=== PATIENT | male | born 1935 | race Caucasian/White ===

== ENCOUNTER 2019-11-25 14:05 | Emergency (ER) | payer MEDICARE, SELFPAY ==
--- NOTE | ~2019-11-25 | CT_ITS ---
EXAMINATION: CT brain wo con DATE: 11/25/2019 14:52 INDICATION: TIA. Dizziness. Weakness. TECHNIQUE: Computed tomography (CT) of the head was performed without intravenous contrast. The dose- length product was 605.33 mGy-cm. The mA was adjusted according to patient size. Iterative reconstruc tion technique was employed. COMPARISON: None FINDINGS: Generalized atrophy. There are scattered mild periventricular and subcortical white matter changes, most likely related to small vessel ischemic disease (microangiopathy). Basilar cisterns are patent. There is intracranial atherosclerosis. No acute intracranial hemorrhage, infarction, mass or mass effect. Paranasal sinuses and mastoids are pneumatized. No depressed skull fractures. IMPRESSION: 1. No acute intracranial abnormality. 2: Chronic age-related findings. Reviewed, dictated and finalized at location A.
--- NOTE | ~2019-11-25 | CT_ITS ---
EXAMINATION: CT chest w con DATE: 11/25/2019 16:27 INDICATION: Possible right chest mass on chest x-ray. TECHNIQUE: Computed tomography (CT) of the chest was performed with 75 cc Omnipaque 350 intravenous c ontrast. The dose-length product was 252.11 mGy-cm. Automated exposure control and iterative reconstr uction technique were employed. COMPARISON: CT dated 11/25/2019 FINDINGS: Enlarged pulmonary arteries consistent with pulmonary arterial hypertension. Ectatic enlarg ed right pulmonary artery accounts for masslike density seen on chest x-ray. No thoracic lymphadenopa thy. No evidence for aortic dissection. Mild atherosclerosis. Small hiatal hernia. There is fusiform aneurysm of the ascending thoracic aorta measuring 4.1 cm. No significant pleural or pericardial effu anali. The upper abdomen is unremarkable. There is a 9 mm right middle lobe nodule, image 85. Severe bullous emphysema, left greater than right . There is right thoracic volume loss. There is right upper lobe scarring/atelectasis which has a karla ear configuration along the major fissure. IMPRESSION: 1. Right middle lobe nodule measuring 9 mm. Cannot exclude malignancy. Recommend follow-up 3 month in terval low dose CT chest or pet/CT. 2: Severe bullous emphysema with right upper lobe scarring/atelectasis. 3: Enlarged pulmonary arteries, consistent with pulmonary arterial hypertension. 4: Fusiform ascending thoracic aortic aneurysm. Reviewed, dictated and finalized at location A. IMPRESSION: 1. Right middle lobe nodule measuring 9 mm. Cannot exclude malignancy. Recommen d follow-up 3 month interval low dose CT chest or pet/CT. 2: Severe bullous emphysema with right upper lobe scarring/atelectasis. 3: Enlarged pulmonary arteries, consistent with pulmonary arterial hypertension . 4: Fusiform ascending thoracic aortic aneurysm.
--- NOTE | ~2019-11-25 | XR_ITS ---
XR chest 2V 11/25/2019 14:43 Indication: Dizziness, shortness of breath. History of COPD. Procedure: AP and lateral views of the chest Comparison: No prior studies for comparison. Findings: There is bullous emphysema, left greater than right. There is bibasilar airspace disease. T here is right apical pleural thickening/scarring. There is prominence of the pulmonary arteries sugge sting pulmonary arterial hypertension. There is a possible mass lateral to the right hilum. Impression: 1: Bibasilar airspace disease may represent pneumonia, edema and/or atelectasis. 2: Possible right perihilar mass partially obscured by adjacent airspace disease. Consider correlatio n with contrast-enhanced CT chest. 3: Bullous emphysema. Reviewed, dictated and finalized at location A. Impression: 1: Bibasilar airspace disease may represent pneumonia, edema and/or atelectasis . 2: Possible right perihilar mass partially obscured by adjacent airspace diseas e. Consider correlation with contrast-enhanced CT chest. 3: Bullous emphysema.
[2019-11-25 14:03] VITALS: BP 127/71; PULSE 85; RESP 20; TEMP 36.9; O2SAT 97
--- NOTE | 2019-11-25 14:15 | ECG_ITS ---
Measurements Intervals [place] Rate: 81 P: 74 [place]: 163 QRS: 66 QRSD: 99 T: 54 QT: 371 QTc: 432 Interpretive Statements SINUS RHYTHM INCOMPLETE RIGHT BUNDLE BRANCH BLOCK INFERIOR INFARCT, AGE INDETERMINATE BASELINE ARTIFACT- I, II, III, V2-V3 ABNORMAL ECG Electronically Signed On 11-25-2019 15:46:05 CDT by Lazaro Wiley D.O.
--- NOTE | 2019-11-25 14:26 | ED.WEAKNESS ---
HPI - Weakness General Chief complaint: Weakness Stated complaint: weakness Time Seen by Provider: 11/25/19 14:14 Source: patient Mode of arrival: EMS Limitations: no limitations History of Present Illness HPI Narrative: 84 years old white male lives alone presents with sudden onset of weakness was not able to get out of chair without feeling like is going to fall over lasted for 15 minutes and then resolved. Patient called 911. History of obstructive sleep apnea on CPAP, COPD on 3 L of oxygen as needed, coronary artery disease, IBS, insomnia, chronic lower back pain. Patient does not take blood thinner. Currently patient feeling great denying any symptoms. Patient denies any fever, chills, nausea, vomiting, respiratory symptoms or urinary symptoms. Related Data Home Medications Medication Instructions Recorded Confirmed albuterol sulfate 2.5 mg INHALATION Q6H 06/27/19 09/10/19 budesonide-formoterol HFA 160 2 puff INHALATION Q12H 06/27/19 09/10/19 mcg-4.5 mcg/actuation aerosol inhaler cefuroxime axetil 500 mg tablet 500 mg PO Q12H 06/27/19 09/10/19 gabapentin 300 mg capsule 300 mg PO TID 06/27/19 09/10/19 hydrocodone 10 mg-acetaminophen 1 tablet PO Q6H PRN 06/27/19 09/10/19 325 mg tablet ipratropium 0.5 mg-albuterol 3 mg 3 ml INHALATION QID PRN 06/27/19 09/10/19 (2.5 mg base)/3 mL nebulization soln linaclotide 290 mcg capsule 290 mcg PO QAM 06/27/19 09/10/19 magnesium 250 mg tablet See Rx Instructions PO DAILY 06/27/19 09/10/19 tiotropium bromide 18 mcg capsule 1 cap INHALATION DAILY 06/27/19 09/10/19 with inhalation device Allergies Allergy/AdvReac Type Severity Reaction Status Date / Time No Known Allergies Allergy Verified 11/25/19 14:10 Review of Systems Review of Systems: Narrative: CONSTITUTIONAL: Denies fever, chills, or sweats. EYES: Denies visual changes, redness, or discharge. ENT: Denies rhinorrhea, congestion, sore throat, or otalgia. CARDIOVASCULAR: Denies chest pain, palpitations, or edema. RESPIRATORY: Denies cough or dyspnea. GASTROINTESTINAL: Denies abdominal pain, nausea, vomiting, or diarrhea. GENITOURINARY: Denies dysuria or hematuria. SKIN: Denies rash or itching. MUSCULOSKELETAL: Denies back pain, joint pain, or myalgia. NEUROLOGIC: Denies headache, numbness, or weakness. PSYCHIATRIC: Denies anxiety or depression. [facility] Past Medical History Medical History Chronic low back pain with left-sided sciatica ANTONIO on CPAP Social History Social History Smoking status: Never smoker Alcohol intake: never Exam Narrative: Exam Narrative: General appearance: Well-developed, well-nourished Skin: Normal color Head: Normocephalic, nontraumatic Eyes: Clear conjunctiva ENT: Oropharynx normal, ears normal, nose normal Neck: Supple, nontender Chest and respiratory: Airway patent, no respiratory distress, no accessory muscle use Heart: Regular rate/rhythm Abdomen: Soft, nontender, no organomegaly, quiet bowel sounds Vascular: Normal peripheral pulses, normal capillary refill. Musculoskeletal: Normal range of motion, nontender back Neurologic: Alert and oriented ?3, [employer]IST[employer] is normal as tested, no gross motor deficit Course Course Emergency Course: Currently asymptomatic Vital Signs Vital signs: Vital Signs Temperature 36.9 C 11/25/19 14:03 Pulse Rate 85 11/25/19 14:03 Respiratory Rate 20 11/25/19 14:03 Blood Pressure 127/71 11/25/19 14:03 Pulse Oximetry 97 11/25/19 14:03 Temperature 36.9 C 11/25/19 14:03 Pulse Rate 90 11/25/19 15:32 Respiratory Rate 20 11/25/19 14:03 B
[2019-11-25 14:37] LABS: Basophils Absolute Auto 0.1 K/mm3 (0.0-0.1); Basophils Percent Auto 0.9 % (0.2-1.2); Eosinophils Absolute Auto 0.1 K/mm3 (0-0.3); Eosinophils Percent Auto 1.1 % (0-4.4); Hematocrit 45.6 % (42.0-52.0); Hemoglobin 14.4 g/dL (14.0-18.0); Immature Granulocyte Absolute 0.08 K/mm3 (0.00-0.031); Lymphocytes Absolute Auto 1.22 K/mm3 (0.9-3.2); Lymphocytes Percent Auto 15.3 % (18.3-44.2); Mean Corpuscular HGB Conc 31.6 g/dl (32-36); Mean Corpuscular Hemoglobin 28.2 pg (26-34); Mean Corpuscular Volume 89.4 fl (80-100); Mean Platelet Volume 10.7 fl (7.4-10.4); Monocytes Absolute Auto 0.5 K/mm3 (0.1-0.6); Monocytes Percent Auto 6.4 % (2.6-8.5); Neutrophils Percent Auto 75.3 % (45.5-73.1); Platelet Count Result 202 k/mm3 (150-375); Red Cell Distribution Width 15.5 % (11.5-14.5)
[2019-11-25 14:45] LABS: Alanine Aminotransferase 17 U/L (4-50); Albumin Level 4.2 g/dL (3.5-5.1); Alkaline Phosphatase 75 U/L (38-126); Aspartate Amino Transferase 28 U/L (17-59); Bilirubin,Total 0.4 mg/dL (0.2-1.3); Blood Urea Nitrogen 12 mg/dL (9-20); Calcium 9.4 mg/dL (8.4-10.2); Carbon Dioxide 30 mmol/L (22-30); Chloride 103 mmol/L (98-107); Estimated Glomerular Filt Rate > 60; Glucose 168 mg/dL (75-110); Potassium 3.5 mmol/L (3.4-5.0); Sodium 140 mmol/L (137-145)
[2019-11-25 14:57] LABS: Troponin I < 0.012 ng/mL (0.000-0.034)
[2019-11-25 15:31] VITALS: BP 122/96; PULSE 85
[2019-11-25 15:32] VITALS: BP 108/93; PULSE 90
[2019-11-25 15:47] LABS: Add Urine Microscopic? NO; Appearance Urine Clear (Clear); Bilirubin Urine Negative (Negative); Blood Urine Negative (Negative); Color Urine Yellow (Yellow); Glucose Urine UA Negative (Negative); Ketones Urine Negative (Negative); Leukocyte Esterase Ur Negative LEU/UL (Negative); Nitrate Urine Negative (Negative); Protein Urine Negative (Negative); Specific Grav Ur 1.021 (1.001-1.035); Urobilinogen Urine Negative mg/dL (<2.0)
[2019-11-25] MEDS: ASPIRIN 325 MG TABLET PO (16:39)
[2019-11-25 17:44] VITALS: BP 124/88; PULSE 74; RESP 20; TEMP 36.7; O2SAT 99
== END 2019-11-25 17:46 | disposition left against medical advice (07) ==
PROVIDERS: Emergency Provider Emergency Medicine; PCP Family Medicine
DX: G47.33 Obstructive sleep apnea (adult) (pediatric) (principal); J43.9 Emphysema, unspecified; I25.10 Atherosclerotic heart disease of native coronary artery without angina pectoris; K58.9 Irritable bowel syndrome, unspecified; M54.42 Lumbago with sciatica, left side; R42 Dizziness and giddiness; R91.1 Solitary pulmonary nodule; I45.10 Unspecified right bundle-branch block; R94.31 Abnormal electrocardiogram [ECG] [EKG]; I71.2 Thoracic aortic aneurysm, without rupture; I77.89 Other specified disorders of arteries and arterioles
CPT/HCPCS: 36415; 70450; 71046; 71260; 80053; 81003; 84484; 85025; 93005; 99284; A9270; Q9967

== ENCOUNTER 2020-05-20 08:44 | Observation (INO) | payer MEDICARE, SELFPAY ==
[2020-05-20] VITALS (14 sets, daily range): BP systolic 94–138; BP diastolic 64–85; PULSE 61–81; RESP 10–18; TEMP 36.6; O2SAT 97–100; BMI 22.4
--- NOTE | ~2020-05-20 | MR_ITS ---
EXAMINATION: MR brain/brain stem wo/w con EXAM DATE: 05/20/2020 15:19 INDICATION: Dizziness. TECHNIQUE: Magnetic resonance imaging (MRI) of the brain/brain stem obtained without contrast. Sagit kimberly T1, axial diffusion, gradient echo (T2*), T1, T2, FLAIR sequences obtained. Patient was then inj ected with 14 cc intravenous Multihance contrast. Axial and coronal postcontrast T1 weighted sequence s obtained. Correlation is made to CTA brain carotid same date. FINDINGS: There are no areas of restricted diffusion to suggest acute infarction. There is no acute hemorrhage seen on the T2*, a hemosiderin sensitive sequence. No intraparenchymal brain mass lesion. There is mild periventricular and subcortical T2/FLAIR signal hyperintensity, nonspecific but probab ly related to small vessel ischemic disease (microangiopathy). There is moderate prominence of the sulci and ventricles related to cerebral atrophy. There are no extra-axial collections. Flow voids are seen in the cerebral arteries on the T2-weighted sequences consistent with their expected patenc y. The orbits are unremarkable. Soft tissue is unremarkable. IMPRESSION: 1. No acute intracranial findings. 2. Chronic age related findings. Reviewed, dictated and finalized at location B.
--- NOTE | ~2020-05-20 | XR_ITS ---
XR chest 2V DATE: 05/20/2020 10:45 INDICATION: Dizziness. Weakness. TECHNIQUE: AP and lateral views COMPARISON: 11/25/2019 CT chest FINDINGS: There is severe emphysema with bullous change, particularly in the left mid-upper lung, as well as right upper lung scarring, stable since 11/25/2019. There is shift of the heart mediastinum ri ghtward, which was also present on 11/25/2019. The proximal pulmonary arteries are very prominent, with rapid tapering, consistent with bilateral pu lmonary hypertension. No pulmonary consolidation, pleural effusion or pneumothorax is evident. Heart size is within normal limits. Diffuse osteopenia. Prominent degenerative disc disease is evident the C5-6 and C6-7 levels. IMPRESSION: Severe emphysema and pulmonary hypertension Reviewed, dictated and finalized at location A.
--- NOTE | ~2020-05-20 | CT_ITS ---
EXAMINATION: CTA brain carotid EXAM DATE: 05/20/2020 10:17 INDICATION: Headache and dizziness. TECHNIQUE: Noncontrast head CT. Spiral CTA of the carotid arteries was performed with intravenous i njection 100 cc of Omnipaque 350. Axial, coronal, sagittal reformatted images reviewed. Additional r eformatted images created on dedicated 3-D workstation. NASCET comparable standard used to assess th e degree of arterial stenosis. Spiral CT angiogram cerebral arteries performed with the same intrave nous injection of contrast. Source images of the brain CTA transferred to dedicated workstation for 3 -D rotational image creation. Coronal, sagittal maximum intensity pixel images also reviewed. The d ose-length product (DLP) for this examination was 1705.91 mGy-cm. The exposure was tailored accordi ng to patient size, and iterative reconstruction (ASIR) was used as additional dose reduction techniq ue. Comparison is made to prior examination from 11/25/2019. FINDINGS: Mildly dilated ascending aorta at 4.2 cm. There is minimal bilateral carotid siphon arteria l sclerosis with 0% stenosis bilaterally. The right vertebral artery is dominant. Minimal carotid sip hon arterial sclerosis with no stenosis. There is no carotid or vertebral basilar arterial dissectio n or fibromuscular dysplasia. There are no cerebral artery aneurysms. There is symmetric cerebral art gladis arborization. The sagittal, transverse and sigmoid sinuses enhance normally, no venous sinus thro mbosis. Internal cerebral veins also enhance normally. There is no acute intraparenchymal hemorrhage. No evidence of intraparenchymal brain mass lesion. N o evidence of acute infarction. There is mild periventricular and subcortical hypodensity, nonspecifi c but probably related to small vessel ischemic disease. There is moderate prominence of the sulci and ventricles related to cerebral atrophy. There is intracranial carotid arteriosclerosis. There is no mass effect or midline shift. There is no obstructive hydrocephalus suspected. There are no e xtra-axial collections. There are no calvarial acute fractures. Bilateral cataract surgery. Severe emphysema and an some linear right upper lobe scarring. No cervical lymphadenopathy. Minimal n willy cavity and ethmoid mucoperiosteal thickening. IMPRESSION: 1. No carotid stenosis or acute brain/carotid findings. 2. Microangiopathy and atrophy. 3. Right apical scarring. 4. Severe emphysema. Reviewed, dictated and finalized at location B.
--- NOTE | 2020-05-20 08:47 | ECG_ITS ---
Measurements Intervals [place] Rate: 60 P: 69 [place]: 135 QRS: 18 QRSD: 146 T: 64 QT: 447 QTc: 449 Interpretive Statements SINUS RHYTHM RIGHT BUNDLE BRANCH BLOCK INFERIOR INFARCT, AGE INDETERMINATE BASELINE ARTIFACT- I, II, AVR, AVL, AVF, V6 ABNORMAL ECG Electronically Signed On 05-20-2020 10:37:09 CDT by Lazaro Wiley D.O.
--- NOTE | 2020-05-20 08:56 | ED.DIZZY ---
HPI - Dizziness General Chief Complaint: Dizziness Stated Complaint: DIZZINESS Time Seen by Provider: 05/20/20 08:55 Source: patient and EMS Mode of arrival: EMS Limitations: no limitations History of Present Illness HPI Narrative: Patient is an 84-year-old male who presents for evaluation of recurrent dizziness. Patient has had dizziness over 72 hours. Patient states he was evaluated in the [place] emergency department 2 days ago, was admitted with a negative work-up after he began to feel better. Pt states because his symptoms did not fully resolve he is seeking care at this facility. He reports a spinning sensation even when he is laying still. He reports that he is feeling weak as well. He denies any pain; no chest pain, abd pain, or dyspnea. No palpitations. Pt reports mild headache over forehead, he denies neck pain. No thunderclap sensation. Related Data Home Medications Medication Instructions Recorded Confirmed cefuroxime axetil 500 mg tablet 500 mg PO Q12H 06/27/19 04/24/20 gabapentin 300 mg capsule 300 mg PO TID 06/27/19 04/24/20 ipratropium 0.5 mg-albuterol 3 mg 3 ml INHALATION QID PRN 06/27/19 04/24/20 (2.5 mg base)/3 mL nebulization soln linaclotide 290 mcg capsule 290 mcg PO QAM 06/27/19 04/24/20 magnesium 250 mg tablet See Rx Instructions PO DAILY 06/27/19 04/24/20 albuterol sulfate 2.5 mg INHALATION Q6H PRN 11/27/19 04/24/20 Allergies Allergy/AdvReac Type Severity Reaction Status Date / Time No Known Allergies Allergy Verified 11/25/19 14:10 Review of Systems Review of Systems: Narrative: CONSTITUTIONAL: Denies fever, chills, or sweats. EYES: Denies visual changes, redness, or discharge. ENT: Denies rhinorrhea, congestion, sore throat, or otalgia. CARDIOVASCULAR: Denies chest pain, palpitations, or edema. RESPIRATORY: Denies cough or dyspnea. GASTROINTESTINAL: Denies abdominal pain, nausea, vomiting, or diarrhea. GENITOURINARY: Denies dysuria or hematuria. SKIN: Denies rash or itching. MUSCULOSKELETAL: Denies back pain, joint pain, or myalgia. NEUROLOGIC: Denies headache, numbness, reports feeling weak in his lower extremities PSYCHIATRIC: Denies anxiety or depression. 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 EYES: 2+ PERRLA and EOMI, pt with horizontal nystagmus with left gaze. ENT: Nares clear, no rhinorrhea or epistaxis. Mucous membranes moist. NECK: Supple. CHEST: No respiratory distress, breathing even and non labored HEART: Regular rate, sinus rhythm ABDOMEN:Non distended, non tender EXTREMITIES: Normal range of motion. No edema. SKIN: Warm, dry, no rash. NEURO:No focal deficits. Alert and oriented x3. Finger to nose intact bilaterally. EOMs intact without nystagmus. No facial droop/asymmetry noted bilaterally. Grimace intact. Intact sensation in face. Hearing intact bilaterally. Shoulder shrug intact. Strength 5/5 bilateral upper extremities. Strength 5/5 bilateral lower extremities. Reflexes 2+ patellar. Heel to lee intact bilaterally. Ambulatory exam deferred. Course Vital Signs Vital signs: Vital Signs Temperature 36.6 C 05/20/20 08:47 Pulse Rate 68 05/20/20 08:47 Respiratory Rate 18 05/20/20 08:47 Blood Pressure 123/72 05/20/20 08:47 Pulse Oximetry 100 05/20/20 08:47 Temperature 36.6 C 05/20/20 08:47 Pulse Rate 69 05/20/20 11:01 Respiratory Rate 12 05/20/20 11:01 Blood Pressure 111/83 05/20/20 11:01 Pulse Oximetry 99 05/20/20 11:0
[2020-05-20 09:01] LABS: Basophils Absolute Auto 0.1 K/mm3 (0.0-0.1); Basophils Percent Auto 0.8 % (0.2-1.2); Eosinophils Absolute Auto 0.1 K/mm3 (0-0.3); Hematocrit 37.6 % (42.0-52.0); Hemoglobin 12.3 g/dL (14.0-18.0); Immature Granulocyte Absolute 0.03 K/mm3 (0.00-0.031); Immature Granulocyte Percent A 0.5 % (0-0.5); Lymphocytes Absolute Auto 0.97 K/mm3 (0.9-3.2); Lymphocytes Percent Auto 16.1 % (18.3-44.2); Mean Corpuscular HGB Conc 32.7 g/dl (32-36); Mean Corpuscular Hemoglobin 27.6 pg (26-34); Mean Corpuscular Volume 84.3 fl (80-100); Monocytes Absolute Auto 0.5 K/mm3 (0.1-0.6); Monocytes Percent Auto 8.9 % (2.6-8.5); Neutrophils Absolute Auto 4.3 K/mm3 (1.3-6.7); Neutrophils Percent Auto 71.7 % (45.5-73.1); Platelet Count Result 216 k/mm3 (150-375); Red Blood Count 4.46 M/mm3 (4.6-6.20); Red Cell Distribution Width 15.7 % (11.5-14.5)
[2020-05-20 09:12] LABS: Anion Gap 6 mmol/L (8-16); Blood Urea Nitrogen 12 mg/dL (9-20); Carbon Dioxide 31 mmol/L (22-30); Chloride 102 mmol/L (98-107); Estimated CRCL calculation 46 ml/min; Estimated Glomerular Filt Rate > 60; Glucose 115 mg/dL (75-110); Potassium 4.1 mmol/L (3.4-5.0); Sodium 139 mmol/L (137-145)
[2020-05-20] MEDS: ACETAMINOPHEN 500 MG TABLET 1000 MG PO (09:40)
[2020-05-20] MEDS: SODIUM CHLORIDE 0.9% IV 1,000 ML 999 ML IV CONT (09:40)
[2020-05-20] MEDS: MECLIZINE HCL 25 MG TABLET PO (09:40)
[2020-05-20 10:43] LABS: INR 1.1; Prothrombin Time 13.7 Seconds (11.1-14.7)
[2020-05-20 10:44] LABS: Partial Thromboplastin Time 26.4 SECONDS (22.3-36.8)
[2020-05-20 10:57] LABS: Troponin I < 0.012 ng/mL (0.000-0.034)
[2020-05-20 11:33] LABS: Add Urine Microscopic? NO; Appearance Urine Clear (Clear); Bilirubin Urine Negative (Negative); Blood Urine Negative (Negative); Color Urine Yellow (Yellow); Glucose Urine UA Negative (Negative); Ketones Urine Negative (Negative); Leukocyte Esterase Ur Negative LEU/UL (Negative); Nitrate Urine Negative (Negative); Protein Urine Negative (Negative); Urobilinogen Urine Negative mg/dL (<2.0)
[2020-05-20] MEDS: SODIUM CHLORIDE 0.9% IV 1,000 ML 125 ML IV CONT (13:52)
--- NOTE | 2020-05-20 15:05 | PM.IMHP ---
H&P: HPI History of Present Illness Date/Time: 05/20/20 15:05 Chief complaint: Dizziness. Narrative: Tony He is an 84-year-old male with multiple medical problems including chronic respiratory failure on home oxygen, severe COPD with bullous emphysema, coronary artery disease, insomnia, obstructive sleep apnea, functional memory problems, restless leg syndrome, and history of coronary artery disease who presented to the emergency department earlier today for evaluation of dizziness. His memory seems poor and he is not the greatest historian but from what I can gather he has been having issues with dizziness over the past 3 to 4 days. In fact he was seen at [facility] for the same complaint 2 days ago and apparently had a negative workup in the emergency department. It sounds as though he has intermittent dizziness, which he has a difficult time describing, at times it sounds as though he has lightheaded and sometimes it sounds as though he may be suffering from vertigo. His symptoms returned today not long after waking this morning in taking care of his dog. He was found to have mild orthostatic hypotension and is being admitted in this setting. At the time my evaluation his main complaint is that of urinary frequency, however I have had the nurse do pre and postvoid residuals and he seems to be emptying his bladder approximately 100 mL at a time make, may be with 60 mL residual. He has not had dysuria or incontinence. Urinalysis shows no signs of UTI. He does not believe he has had any recent change in medications however it is noted that he was started on donepezil at least sometime this year. He denies falls. No auditory visual changes. No focal weakness or paresthesias. No chest pain, palpitations, or cardiac dysrhythmia. Review of Systems Review of Systems: Narrative: Twelve systems were reviewed with pertinent positives and negatives as per HPI. He does seem a bit forgetful thus the accuracy of such is questionable. He denies recent cold and flu symptoms. No recent travel or sick contacts. No orthopnea or PND. He uses oxygen p.r.n. during the day and does not believe he was using it when he had the episode of dizziness this morning. He denies that he was feeling short of breath at that time. He has not had any falls. No nausea, vomiting, or diarrhea. Except as documented, all other systems were reviewed and are negative. [facility] Past Medical History Medical History (Updated 05/20/20 @ 15:12 by Raissa Posadas PA-C) Anemia Borderline diabetes mellitus Chronic insomnia Chronic low back pain With left-sided sciatica in previous MRI demonstrating spinal stenosis and disc herniation. He is followed by pain management. Chronic respiratory failure with hypoxia, on home oxygen therapy On 3 L nasal cannula with activity and bleed and with CPAP at nighttime. Coronary artery disease With history of anterior wall DC status post PTCA/stent to the LAD in August 2008. Followed by Dr. Jay at [facility]. Functional memory problem Obstructive sleep apnea on CPAP Restless legs syndrome Right middle lobe pulmonary nodule Being monitored by his wildlife conservationist in [place]. Severe chronic obstructive pulmonary disease With bullous emphysema and bronchiectasis. Followed by a wildlife conservationist in [place]. Spontaneous pneumothorax (~11/2017) Thoracic aortic aneurysm Fusiform ascending thoracic aortic aneurysm measuring 4.1 cm on imaging in 11/2019. Vasomotor rhinitis Surgical History Surgical History (Updated 05/20/20 @ 15:12 by Raissa Posadas PA-C) History of appendectomy History of cardiac catheterization (~08/2008) With PTCA/bare metal stent to the LAD. History of carpal tunnel release (~10/2018) Left carpal tunnel release. Family History Family History (Updated 05/20/20 @ 15:12 by Rasisa Posadas PA-C) Mother Diabetes mellitus Father Acute myocardial infarction
--- NOTE | 2020-05-20 19:38 | PC.NURSE ---
This patient, Tony He, was admitted to 3 [facility] Surg Room 323-01. Report received from ROMINA Davidson. Patient/family oriented to hospital policies and general routines including ID bracelet, bed and alarms, visiting hours, pain management, procedures, bathroom and other care routines, personal items, smoking policy, room service/diet, and visiting hours. Valuables list has been completed. Information on how to activate the Rapid Response Team has been discussed. Patient/Family are encouraged to report perceived risks to care and to ask questions if they do not understand what they are told or what they should do.
[2020-05-20] MEDS: GABAPENTIN 300 MG CAPSULE PO (21:22)
[2020-05-20] MEDS: AMITRIPTYLINE HCL 10 MG TABLET PO (21:22)
[2020-05-20] MEDS: traZODone HCL 25 MG TABLET PO (21:22)
[2020-05-20] MEDS: DONEPEZIL HCL 10 MG TABLET PO (21:22)
[2020-05-20] MEDS: rOPINIRole HCL 0.25 MG TABLET PO (21:22)
[2020-05-21] VITALS: PULSE 59
[2020-05-21 04:00] VITALS: PULSE 64
[2020-05-21 06:00] VITALS: BP 146/77; PULSE 65; RESP 18; TEMP 36.7; O2SAT 99
[2020-05-21 06:30] LABS: Anion Gap 5 mmol/L (8-16); Blood Urea Nitrogen 12 mg/dL (9-20); Calcium 8.9 mg/dL (8.4-10.2); Carbon Dioxide 29 mmol/L (22-30); Chloride 104 mmol/L (98-107); Estimated CRCL calculation 54 ml/min; Estimated Glomerular Filt Rate > 60; Glucose 96 mg/dL (75-110); Potassium 3.9 mmol/L (3.4-5.0); Sodium 138 mmol/L (137-145)
[2020-05-21 07:18] LABS: Iron 51 ug/dL (49-181)
[2020-05-21 07:27] LABS: Percent Iron Saturation 16 % (20-50)
[2020-05-21 08:00] VITALS: PULSE 65
[2020-05-21 08:20] LABS: Folic Acid 9.9 ng/mL (2.76->20)
[2020-05-21 08:59] VITALS: PULSE 108; O2SAT 99
[2020-05-21 09:00] VITALS: BP 114/93; BP 120/89; BP 121/70; PULSE 56; PULSE 66; PULSE 67; O2SAT 100
[2020-05-21] MEDS: MONTELUKAST SODIUM 10 MG TABLET PO (09:05)
[2020-05-21] MEDS: LORATADINE 10 MG TABLET PO (09:05)
[2020-05-21] MEDS: GABAPENTIN 300 MG CAPSULE PO (09:05)
[2020-05-21] MEDS: AZITHROMYCIN 250 MG TABLET 500 MG PO (09:05)
--- NOTE | 2020-05-21 12:02 | WPDNEURCNPN ---
Assessment and Plan Assessment and plan (1) Borderline diabetes mellitus: Code(s): R73.03 - Prediabetes Status: Acute (2) Orthostatic hypotension: Code(s): I95.1 - Orthostatic hypotension Status: Acute (3) Dizziness: Code(s): R42 - Dizziness and giddiness Status: Acute Additional Plan multifactorial reason for the dizziness most likely related to the neuropathy is the person can be documented to have orthostatic changes during this hospitalization he can be started on my to drain and followed as an outpatient Consult date: 05/21/20 Time Seen: 11:30 HPI: Tony He is a 84 year old male admitted to the hospital for the complaints of dizziness in addition to the memory dysfunction and also with the history that he was evaluated at [facility] about couple of days ago does have ongoing history of 1. Chronic respiratory failure oxygen-dependent with underlying COPD and bullous emphysema 2. Coronary artery disease 3. Obstructive sleep apnea 4. Restless leg syndrome. Evaluation up until now includes a negative MRI of the brain, normal routine lab Review of Systems Review of Systems: All systems reviewed & are unremarkable except as noted in HPI and below PMFSH Past Medical History Medical History (Updated 05/20/20 @ 15:12 by Raissa Posadas PA-C) Anemia Borderline diabetes mellitus Chronic insomnia Chronic low back pain With left-sided sciatica in previous MRI demonstrating spinal stenosis and disc herniation. He is followed by pain management. Chronic respiratory failure with hypoxia, on home oxygen therapy On 3 L nasal cannula with activity and bleed and with CPAP at nighttime. Coronary artery disease With history of anterior wall OR status post PTCA/stent to the LAD in August 2008. Followed by Dr. Jay at [facility]. Functional memory problem Obstructive sleep apnea on CPAP Restless legs syndrome Right middle lobe pulmonary nodule Being monitored by his access developer in [place]. Severe chronic obstructive pulmonary disease With bullous emphysema and bronchiectasis. Followed by a access developer in [place]. Spontaneous pneumothorax (~11/2017) Thoracic aortic aneurysm Fusiform ascending thoracic aortic aneurysm measuring 4.1 cm on imaging in 11/2019. Vasomotor rhinitis Surgical History Surgical History (Updated 05/20/20 @ 15:12 by Raissa Posadas PA-C) History of appendectomy History of cardiac catheterization (~08/2008) With PTCA/bare metal stent to the LAD. History of carpal tunnel release (~10/2018) Left carpal tunnel release. Family History Family History (Updated 05/20/20 @ 15:12 by Raissa Posadas PA-C) Mother Diabetes mellitus Father Acute myocardial infarction Sibling Diabetes mellitus Social History Social History (Updated 05/20/20 @ 20:22 by Raissa Posadas PA-C) Social History: Surrogate decision maker: Dang Raymond (daughter) and Bruce He (son). Code status: Full code. Smoking status: Never smoker Alcohol intake: never Substance use: never Additional living arrangements comments: The patient is and lives in his own home in [place] with his dog, Adam. 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 Gender identity (if verbalized by the patient): Male Spiritual care concerns: No Meds Home Medications and Allergies Home Medications Medication Instructions Recorded Confirmed Type gabapentin 300 mg capsule 300 mg PO TID 06/27/19 05/20/20 History ropinirole 0.25 mg tablet 0.25 mg PO . q.h.s. #30 tablet 01/14/20 05/20/20 Rx donepezil 10 mg tablet 10 mg PO . q.h.s. #30 tablet 03/27/20 05/20/20 Rx budesonide-formoterol HFA 160 2 puff INHALATION Q12H #10.2 gm 03/28/20 05/20/20 Rx mcg-4.5 mcg/actuation aerosol inhaler tiotropium bromide 18 mcg capsule 1 cap INHALATION DAILY #90 03/28/20 05/20/20 Rx w
--- NOTE | 2020-05-21 18:14 | PM.DS ---
DS: Admitting Diagnosis Admitting Diagnosis Admitting Diagnosis: Dizziness. DS: Discharge Diagnosis Discharge Diagnosis (1) Dizziness: Code(s): R42 - Dizziness and giddiness Status: Acute Assessment and Plan: CT of the brain and MRI of the brain failed to reveal any acute infarct or etiology for his dizziness. Was seen by Neurology and thought the dizziness may be multifactorial possibly even orthostasis. By any means he was up and about without any recurrence of symptoms and able to be discharged home (2) Severe chronic obstructive pulmonary disease: Code(s): J44.9 - Chronic obstructive pulmonary disease, unspecified Status: Acute Assessment and Plan: continue his home O2 and his inhalers (3) Obstructive sleep apnea on CPAP: Code(s): G47.33 - Obstructive sleep apnea (adult) (pediatric); Z99.89 - Dependence on other enabling machines and devices Status: Acute Assessment and Plan: continue CPAP at home (4) Restless legs syndrome: Code(s): G25.81 - Restless legs syndrome Status: Acute Assessment and Plan: continue ropinirole (5) Functional memory problem: Code(s): R41.3 - Other amnesia Status: Acute Assessment and Plan: continue Aricept DS: Summary Hospital Course Hospital Course: 84-year-old gentleman with mild dementia and COPD on home O2 presented to the emergency room with complaints of dizziness. It was difficult to elicit from history of whether he was having true dizziness or vertigo symptoms. There was some mild orthostasis but that did not appear to correlate with his symptoms. CT of the brain and MRI of the brain showed no acute findings. he seen in consultation by Neurology.. 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 about with no complaints of dizziness stable and able to be discharged home DS: Data Data Completed and Pending Labs on day of discharge: Labs from last 24 hours 05/21/20 05/21/20 05:28 05:28 Sodium 138 Potassium 3.9 Chloride 104 Carbon Dioxide 29 Anion Gap 5 L BUN 12 Creatinine 0.90 Estim Creat Clear Calc 54 Estimated GFR > 60 Glucose 96 Calcium 8.9 Iron 51 TIBC 318 % Saturation 16 L Ferritin 33.50 Vitamin B12 320.0 Folate 9.9 Discharge Plan Discharge Attending physician on discharge: Anthony Ralph Consulting providers: Wes Schwartz Discharging Clinician: Anthony Ralph Patient Disposition: Home, Self-Care Activity: as tolerated Diet: regular Patient Instructions: Antibiotic Form Stand Alone Forms: General Discharge Information Follow-up/Referrals: Ned Foy MD [Primary Care Provider] - Keep Reg. Scheduled Appt. Discharge Medications: Continued ropinirole [Requip] 0.25 mg tablet 0.25 mg PO . q.h.s. Qty: 30 RF: 11 donepezil [Aricept] 10 mg tablet 10 mg PO . q.h.s. Qty: 30 RF: 11 tramadol 50 mg tablet 50 mg PO TID PRN (Reason: pain) RF: 0 theophylline 300 mg Tablet Extended Release 12 Hr 300 mg PO DAILY RF: 0 amitriptyline 10 mg Tablet 10 mg PO HS RF: 0 loratadine 10 mg Tablet 10 mg PO DAILY RF: 0 azithromycin 500 mg tablet 500 mg PO QMWF RF: 0 Movantik 12.5 mg Tablet 12.5 mg PO DAILY RF: 0 gabapentin 300 mg capsule 300 mg PO TID RF: 0 Symbicort 160-4.5 mcg/actuation HFA aeros
== END 2020-05-21 13:15 | disposition home or self-care (01) ==
LOC: ANHED 11:43 → ANH3MEDSUR 15:13
PROVIDERS: Physician Assistant; Admitting Provider Family Medicine; Emergency Provider Emergency Medicine; PCP Family Medicine; Visit Provider Internal Medicine
DX: R42 Dizziness and giddiness (principal); I95.1 Orthostatic hypotension; F03.90 Unspecified dementia, unspecified severity, without behavioral disturbance, psychotic disturbance, mood disturbance, and anxiety; D64.9 Anemia, unspecified; G47.00 Insomnia, unspecified; G47.33 Obstructive sleep apnea (adult) (pediatric); G25.81 Restless legs syndrome; J96.11 Chronic respiratory failure with hypoxia; J43.9 Emphysema, unspecified; I25.10 Atherosclerotic heart disease of native coronary artery without angina pectoris; R73.03 Prediabetes; Z99.81 Dependence on supplemental oxygen; Z99.89 Dependence on other enabling machines and devices; Z79.899 Other long term (current) drug therapy
CPT/HCPCS: 36415; 70496; 70498; 70553; 71046; 80048; 81003; 82607; 82728; 82746; 83540; 83550; 84484; 85025; 85610; 85730; 93005; 94640; 96360; 96361; 97161; 97165; 99285; A9270; A9577; G0378; J7030; Q9967

== ENCOUNTER 2021-07-17 09:17 | Outpatient (RCR) | payer MEDICARE, SELFPAY ==
[2021-07-17 16:05] VITALS: BP 119/64; PULSE 95; RESP 20; TEMP 37; O2SAT 95
[2021-07-17] MEDS: diphenhydrAMINE HCl CAP 25 MG CAPSULE PO (16:12)
[2021-07-17] MEDS: FAMOTIDINE 20 MG TABLET PO (16:12)
[2021-07-17] MEDS: ACETAMINOPHEN 325 MG TABLET 650 MG PO (16:12)
[2021-07-17 16:57] VITALS: BP 107/64; O2SAT 96
--- NOTE | 2021-07-20 09:37 | PC.NURSE ---
Called Efraínrobinson and he is feeling good, and has no question at this time.
== END 2021-07-17 17:00 ==
LOC: AMCINF 09:17
PROVIDERS: PCP Nurse Practitioner Family; Visit Provider Internal Medicine Hematology & Oncology
DX: U07.1 COVID-19 (principal); J44.9 Chronic obstructive pulmonary disease, unspecified
CPT/HCPCS: A9270; M0243